=== PATIENT | female | born 1965 | race Hispanic/Latino ===

== ENCOUNTER 2022-08-27 16:51 | Inpatient (IN) | payer MEDICARE ==
[~2022-08-27] VITALS: Ht 170.2 cm; Wt 83.9 kg
[2022-08-27] MEDS ORDERED: DEXTROSE 50% SYRINGE 50 ML IV STA (17:12)
[2022-08-27] MEDS ORDERED: DEXTROSE 5% 1,000 ML IV ONE (17:15)
[2022-08-27] MEDS ORDERED: DEXTROSE 50% SYRINGE 50 ML IV ONE (17:29)
[2022-08-27 17:31] LABS: BASOPHILS # (AUTO) 0.1 (0.0-0.1); BASOPHILS % 0.4 % (0.0-1.0); EOSINOPHILS % 0.2 % (0.0-6.0); HEMOGLOBIN 14.9 g/dL (12.0-16.0); LYMPHOCYTES # (AUTO) 3.3 (1.0-3.2); LYMPHOCYTES % 27.1 % (18.0-39.1); MEAN CORPUSCULAR HEMOGLOBIN 31.6 pg (28-32); MEAN CORPUSCULAR HGB CONC 33.9 g/dL (31-35); MEAN CORPUSCULAR VOLUME 93.2 fL (81-99); MONOCYTES # (AUTO) 0.8 (0.2-0.8); MONOCYTES % 6.1 % (4.4-11.3); NEUTROPHILS % 65.7 % (38.7-80.0); PLATELET COUNT 272 x10e3/uL (140-360); RED BLOOD COUNT 4.72 x10e6/uL (3.6-5.1); RED CELL DISTRIBUTION WIDTH 12.2 % (11.7-14.4)
[2022-08-27 17:48] LABS: ALANINE AMINOTRANSFERASE 14 IU/L (0-55); ALBUMIN 4.1 g/dL (3.5-5.0); ALBUMIN/GLOBULIN RATIO 1.3 (0.8-2.0); ALKALINE PHOSPHATASE 141 IU/L (40-150); ANION GAP 16.3 mmol/L (8-16); BLOOD UREA NITROGEN 7 mg/dL (7-26); BUN/CREATININE RATIO 9 (6-25); CALCIUM 9.6 mg/dL (8.4-10.2); CARBON DIOXIDE 23 mmol/L (22-29); CHLORIDE 102 mmol/L (98-107); GLUCOSE 224 mg/dL (74-118); POTASSIUM 3.3 mmol/L (3.5-5.1); SODIUM 138 mmol/L (136-145)
[2022-08-27 18:16] LABS: CLARITY,URINE CLEAR (CLEAR); COLOR,URINE COLORLESS (YELLOW)
[2022-08-27 18:17] LABS: KETONES,URINE NEGATIVE (NEGATIVE); LEUKOCYTE ESTERASE ,URINE NEGATIVE (NEGATIVE); NITRITE,URINE NEGATIVE (NEGATIVE); PROTEIN,URINE DIPSTICK NEGATIVE (NEGATIVE); URINE UROBILINOGEN 0.2 mg/dL (0.2 - 1)
[2022-08-27] MEDS ORDERED: SODIUM CHLORIDE FLUSH 10 ML SYR INJ PRN (18:45)
[2022-08-27] MEDS ORDERED: DEXTROSE 50% SYRINGE 50 ML IV PRN (18:45)
[2022-08-27] MEDS ORDERED: ONDANSETRON HCL INJ 2MG/ML 2ML 2 MG/ML VIAL IV PRN (18:45)
[2022-08-27] MEDS: MIRTAZAPINE 15 MG TAB PO SCH (20:29)
[2022-08-27] MEDS: OLANZAPINE 5 MG TAB PO SCH (20:29)
[2022-08-27 22:22] VITALS: BP 139/75
[2022-08-27 22:23] VITALS: BP 139/75
[2022-08-27 22:50] VITALS: BP 139/75
[2022-08-28] MEDS ORDERED: ATORVASTATIN CA40 MG PO (00:35)
[2022-08-28] MEDS ORDERED: METOPROLOL TART50 MG PO (00:36)
[2022-08-28] MEDS ORDERED: ACETAMINOPHEN650 MG PO (00:37)
[2022-08-28] MEDS ORDERED: MIRTAZAPINE15 MG PO (00:43)
[2022-08-28] MEDS ORDERED: MINIPRESS2 MG PO ×2 (00:43→00:50)
[2022-08-28] MEDS ORDERED: RISPERIDONE1 MG PO (00:43)
[2022-08-28] MEDS ORDERED: HYDROXYZIN10 MG/5 ML PO (00:50)
[2022-08-28] MEDS ORDERED: GLIPIZIDE5 MG PO (00:50)
[2022-08-28] MEDS ORDERED: ZOLPIDEM TARTRATE 5 MG TAB PO ONE (01:15)
[2022-08-28] MEDS: TRAMADOL HCL 50 MG TAB PO PRN (01:21)
[2022-08-28 01:24] VITALS: BP 141/74
[2022-08-28 06:06] LABS: BASOPHILS % 0.2 % (0.0-1.0); HEMOGLOBIN 14.3 g/dL (12.0-16.0); LYMPHOCYTES # (AUTO) 1.1 (1.0-3.2); LYMPHOCYTES % 12.2 % (18.0-39.1); MEAN CORPUSCULAR HEMOGLOBIN 31.4 pg (28-32); MEAN CORPUSCULAR HGB CONC 32.5 g/dL (31-35); MEAN CORPUSCULAR VOLUME 96.5 fL (81-99); MONOCYTES # (AUTO) 0.2 (0.2-0.8); MONOCYTES % 2.6 % (4.4-11.3); NEUTROPHILS # (AUTO) 7.9 (2.1-6.9); NEUTROPHILS % 84.7 % (38.7-80.0); PLATELET COUNT 258 x10e3/uL (140-360); RED BLOOD COUNT 4.56 x10e6/uL (3.6-5.1); RED CELL DISTRIBUTION WIDTH 11.5 % (11.7-14.4)
[2022-08-28 06:21] LABS: ANION GAP 13.1 mmol/L (8-16); CALCIUM 9.2 mg/dL (8.4-10.2); CREATININE, SERUM 0.8 mg/dL (0.57-1.11); POTASSIUM 4.1 mmol/L (3.5-5.1)
[2022-08-28 07:04] VITALS: BP 103/70
[2022-08-28 07:26] VITALS: BP 107/76
[2022-08-28 08:53] VITALS: BP 107/76
[2022-08-28] MEDS: NICOTINE 21 MG/EA PATCH TOP SCH (11:16)
[2022-08-28 11:35] VITALS: BP 117/75
[2022-08-28] MEDS: HYDROXYZINE HCL 25 MG TAB PO PRN (12:07)
[2022-08-28] MEDS ORDERED: DEXTROSE 50% SYRINGE 50 ML IV PRN (14:15)
[2022-08-28] MEDS: LORAZEPAM INJ 2 MG/ML VIAL IV PRN (14:22)
[2022-08-28 15:48] VITALS: BP 143/92
[2022-08-28] MEDS: INSULIN LISPRO 100 UNIT/1 ML 3ML VIAL SQ SCH (17:05)
[2022-08-28] MEDS: METOPROLOL TARTRATE 50 MG TAB PO SCH (17:24)
[2022-08-28 17:28] LABS: AMPHETAMINES SCREEN,URINE NEGATIVE (NEGATIVE); BENZODIAZEPINES SCREEN,URINE NEGATIVE (NEGATIVE); PHENCYCLIDINE SCREEN,URINE NEGATIVE (NEGATIVE)
[2022-08-28] MEDS: OLANZAPINE 5 MG TAB PO SCH (20:18)
[2022-08-28] MEDS: ATORVASTATIN 40 MG TAB PO SCH (20:19)
[2022-08-28] MEDS: MIRTAZAPINE 15 MG TAB PO SCH (20:19)
[2022-08-28] MEDS: RISPERIDONE 1 MG TAB PO SCH (20:19)
[2022-08-28] MEDS: PRAZOSIN HCL 1 MG CAP PO SCH (20:21)
[2022-08-29] VITALS (10 sets, daily range): BP systolic 104–151; BP diastolic 60–92
[2022-08-29] MEDS: INSULIN LISPRO 100 UNIT/1 ML 3ML VIAL SQ SCH ×5 (01:28→22:01)
[2022-08-29] MEDS: LORAZEPAM INJ 2 MG/ML VIAL IV PRN ×2 (04:52→17:06)
[2022-08-29] MEDS: TRAMADOL HCL 50 MG TAB PO PRN ×3 (06:18→21:52)
[2022-08-29] MEDS: HYDROXYZINE HCL 25 MG TAB PO PRN ×2 (08:47→14:06)
[2022-08-29] MEDS: NICOTINE 21 MG/EA PATCH TOP SCH (08:47)
[2022-08-29] MEDS: METOPROLOL TARTRATE 50 MG TAB PO SCH ×2 (08:48→17:07)
[2022-08-29] MEDS ORDERED: FLUCONAZOLE 100 MG TAB PO ONE (17:00)
[2022-08-29] MEDS: ATORVASTATIN 40 MG TAB PO SCH (21:51)
[2022-08-29] MEDS: MIRTAZAPINE 15 MG TAB PO SCH (21:51)
[2022-08-29] MEDS: RISPERIDONE 1 MG TAB PO SCH (21:53)
[2022-08-29] MEDS: OLANZAPINE 5 MG TAB PO SCH (21:53)
[2022-08-29] MEDS: PRAZOSIN HCL 1 MG CAP PO SCH (21:54)
[2022-08-30 04:25] VITALS: BP 116/80
[2022-08-30 06:31] LABS: CHOL/HDL RATIO 3.2 (3.0-3.6)
[2022-08-30] MEDS ORDERED: SALMETEROL/FLUTICASONE 250/50 INH SCH (07:00)
[2022-08-30] MEDS: INSULIN LISPRO 100 UNIT/1 ML 3ML VIAL SQ SCH ×2 (07:30→11:30)
[2022-08-30 08:06] VITALS: BP 124/78
[2022-08-30 09:04] VITALS: BP 124/78
[2022-08-30 09:30] VITALS: BP 124/78
[2022-08-30] MEDS: NICOTINE 21 MG/EA PATCH TOP SCH (09:44)
[2022-08-30] MEDS: METOPROLOL TARTRATE 50 MG TAB PO SCH (09:44)
[2022-08-30 13:02] VITALS: BP 118/82
[2022-08-30] MEDS ORDERED: ONDANSETRON HCL 4 MG ORAL DISINTEGRATING TAB PO PRN (15:30)
== END 2022-08-30 15:50 | disposition home or self-care (01) | DRG 644 ==
LOC: ER 17:05 → ERHOLD 18:37 → MED/SURG2 22:07
PROVIDERS: ADMIT Internal Medicine; ATTEND Internal Medicine
DX: E16.0 Drug-induced hypoglycemia without coma (principal); F20.0 Paranoid schizophrenia; R45.851 Suicidal ideations; E87.6 Hypokalemia; F31.9 Bipolar disorder, unspecified; F43.10 Post-traumatic stress disorder, unspecified; J44.9 Chronic obstructive pulmonary disease, unspecified
CPT/HCPCS: 0223U; 36415; 80048; 80053; 80061; 80307; 81001; 82948; 83036; 84484; 85025; 87086; 93005; 96372; 99284; J2060; J3410; J7070; J7799

== ENCOUNTER 2022-11-01 16:03 | Emergency (ER) | payer MEDICARE ==
[~2022-11-01] VITALS: Ht 167.6 cm; Wt 83.9 kg
[~2022-11-01 16:03] MED LIST: ACETAMINOPHEN650 MG PO; ATORVASTATIN CA40 MG PO; GLIPIZIDE5 MG PO; HYDROXYZIN10 MG/5 ML PO; METOPROLOL TART50 MG PO; MINIPRESS2 MG PO; MIRTAZAPINE15 MG PO; RISPERIDONE1 MG PO
[2022-11-01] MEDS ORDERED: ONDANSETRON HCL INJ 2MG/ML 2ML 2 MG/ML VIAL IV STA (17:13)
[2022-11-01] MEDS ORDERED: KETOROLAC TROMETHAMINE 30 MG/ML VIAL IV STA (17:13)
[2022-11-01] MEDS ORDERED: CLONIDINE HCL 0.2 MG TAB PO ONE (17:15)
[2022-11-01] MEDS ORDERED: FIORICET 50-301 EACH PO (18:36)
== END 2022-11-01 18:45 | disposition home or self-care (01) ==
LOC: ER 16:09
DX: G43.909 Migraine, unspecified, not intractable, without status migrainosus (principal); I10 Essential (primary) hypertension; F20.9 Schizophrenia, unspecified; Z95.810 Presence of automatic (implantable) cardiac defibrillator
CPT/HCPCS: 99284; J1885; J2405

== ENCOUNTER 2022-11-06 11:44 | Emergency (ER) | payer SELFPAY ==
[~2022-11-06] VITALS: Ht 167.6 cm; Wt 83.9 kg
[~2022-11-06 11:44] MED LIST changes: +FIORICET 50-301 EACH PO
[2022-11-06] MEDS ORDERED: KETOROLAC TROMETHAMINE 60 MG/2 ML VIAL IM ONE (12:00)
[2022-11-06] MEDS ORDERED: HYDROCODONE/APAP 10MG-325MG TAB PO ONE (14:00)
[2022-11-06] MEDS ORDERED: DEXAMETHASONE SOD PHOS 10 MG/1 ML VIAL IM ONE (14:00)
[2022-11-06] MEDS ORDERED: IBUPROFEN 600 MG TAB PO STA (14:01)
[2022-11-06] MEDS ORDERED: IBUPROFEN 400 MG TAB ONE (14:03)
[2022-11-06] MEDS ORDERED: IBUPROFEN 400 MG TAB PO ONE (15:00)
== END 2022-11-06 14:39 | disposition home or self-care (01) ==
LOC: ER 11:48
DX: M54.9 Dorsalgia, unspecified (principal); M54.2 Cervicalgia; R51.9 Headache, unspecified; Z95.810 Presence of automatic (implantable) cardiac defibrillator; V43.52XD Car driver injured in collision with other type car in traffic accident, subsequent encounter; I10 Essential (primary) hypertension; E11.65 Type 2 diabetes mellitus with hyperglycemia; E78.5 Hyperlipidemia, unspecified; F20.9 Schizophrenia, unspecified
CPT/HCPCS: 36415; 82948; 99284; J1100

== ENCOUNTER 2023-05-07 21:04 | Emergency (ER) | payer MEDICARE ==
[~2023-05-07] VITALS: Ht 167.6 cm; Wt 83.9 kg
[2023-05-07] MEDS ORDERED: METHYLPREDNISOLONE SOD SUCC 125 MG/2ML VIAL IM STA (21:14)
[2023-05-07] MEDS ORDERED: LIDOCAINE 4% PATCH TP STA (21:14)
[2023-05-07] MEDS ORDERED: KETOROLAC TROMETHAMINE 60 MG/2 ML VIAL IM ONE (21:15)
[2023-05-07] MEDS ORDERED: ULTRAM 50MG50 MG PO (23:54)
[2023-05-08 00:14] VITALS: BP 121/78; O2SAT 100
== END 2023-05-08 00:10 | disposition home or self-care (01) ==
LOC: ER 21:10
DX: M51.26 Other intervertebral disc displacement, lumbar region (principal); M48.061 Spinal stenosis, lumbar region without neurogenic claudication; I10 Essential (primary) hypertension; E11.9 Type 2 diabetes mellitus without complications; E78.5 Hyperlipidemia, unspecified; F20.9 Schizophrenia, unspecified; Z95.810 Presence of automatic (implantable) cardiac defibrillator
CPT/HCPCS: 72125; 72128; 72131; 99284; J1885; J2930

== ENCOUNTER 2023-05-24 11:14 | Emergency (ER) | payer OTHER ==
[~2023-05-24] VITALS: Ht 167.6 cm; Wt 77.1 kg
[~2023-05-24 11:14] MED LIST changes: +ULTRAM 50MG50 MG PO
[2023-05-24 11:38] VITALS: O2SAT 96
[2023-05-24] MEDS ORDERED: KETOROLAC TROMETHAMINE 60 MG/2 ML VIAL IM ONE (12:00)
[2023-05-24] MEDS ORDERED: KETOROLAC TROMETHAMINE 30 MG/ML VIAL IM ONE (12:30)
== END 2023-05-24 14:31 | disposition home or self-care (01) ==
LOC: ER 11:35
DX: M25.511 Pain in right shoulder (principal); S40.011A Contusion of right shoulder, initial encounter; M79.89 Other specified soft tissue disorders; M54.9 Dorsalgia, unspecified; W18.11XA Fall from or off toilet without subsequent striking against object, initial encounter; Y92.89 Other specified places as the place of occurrence of the external cause; G89.29 Other chronic pain; I10 Essential (primary) hypertension; E11.9 Type 2 diabetes mellitus without complications; E78.5 Hyperlipidemia, unspecified; F20.9 Schizophrenia, unspecified; Z95.810 Presence of automatic (implantable) cardiac defibrillator
CPT/HCPCS: 73000; 93970; 99284; J1885

== ENCOUNTER 2023-05-25 14:57 | Emergency (ER) | payer MEDICARE ==
[~2023-05-25] VITALS: Ht 167.6 cm; Wt 77.1 kg
[2023-05-25 15:00] VITALS: O2SAT 99
== END 2023-05-25 15:10 | disposition home or self-care (01) ==
LOC: ER 15:03
DX: M79.10 Myalgia, unspecified site (principal); I10 Essential (primary) hypertension; E11.9 Type 2 diabetes mellitus without complications; E78.5 Hyperlipidemia, unspecified; F20.9 Schizophrenia, unspecified; M54.9 Dorsalgia, unspecified; G89.29 Other chronic pain; Z95.810 Presence of automatic (implantable) cardiac defibrillator
CPT/HCPCS: 99283